=== PATIENT | female | born 1990 | race African-American/Black ===

== ENCOUNTER 2019-09-24 09:59 | Emergency (ER) | payer OTHER, SELFPAY ==
[2019-09-24 10:30] VITALS: BP 122/72; PULSE 80; RESP 16; TEMP 36.9; O2SAT 99
--- NOTE | 2019-09-24 11:06 | ED.DENTAL ---
HPI - Dental/Oral General Chief complaint: Dental/Oral Stated complaint: toothache Time Seen by Provider: 09/24/19 11:00 Source: patient and RN notes reviewed Mode of arrival: ambulatory Limitations: no limitations History of Present Illness HPI Narrative: Patient presents today complaining of right lower jaw swelling and tooth pain x2 days. Denies fever, shortness of breath or difficulty swallowing. She does not currently have a dentist and has not been able to find one that will take her insurance. Smokes 0.5 packs/day. Currently rates her pain 01/23 and has been taking ibuprofen without relief. Pain increases with opening and closing of her mouth. MD Complaint: tooth pain Related Data Home Medications Medication Instructions Recorded Confirmed fluoxetine mg 09/24/19 fluoxetine mg 09/24/19 hydroxyzine HCl 09/24/19 pravastatin 09/24/19 propranolol 09/24/19 trazodone 09/24/19 Allergies Allergy/AdvReac Type Severity Reaction Status Date / Time No Known Allergies Allergy Unverified 10/19/16 08:11 Review of Systems Review of Systems: Narrative: CONSTITUTIONAL: Denies body aches, fever, chills, or sweats. EYES: Denies visual changes, redness, or discharge. ENT: Denies rhinorrhea, congestion, sore throat, or otalgia.+ Tooth pain and right lower jaw swelling CARDIOVASCULAR: Denies chest pain, palpitations, or edema. RESPIRATORY: Denies cough or dyspnea. GASTROINTESTINAL: Denies abdominal pain, nausea, vomiting, or diarrhea. GENITOURINARY: Denies dysuria or hematuria. SKIN: Denies rash, itching, or wounds. MUSCULOSKELETAL: Denies back pain, joint pain, or myalgia. NEUROLOGIC: Denies headache, numbness, tingling, or weakness. PSYCH: Denies depression or anxiety. [facility] Past Medical History Medical History (Updated 09/24/19 @ 11:09 by Mariya Samano, NUTRITION AND DIETETICS INSTRUCTOR, ) Anxiety Comments At time of signature, I have reviewed and agree with nursing past medical, surgical, social and family history unless otherwise noted. Please see nursing chart for further information. There is no relevant family history pertinent to the presenting complaint Exam Narrative: Exam Narrative: GENERAL: Well-appearing, well-nourished, and in no acute distress. HEAD: Normocephalic, atraumatic. EYES: EOMI. No redness or drainage. Conjunctivae normal. ENT: Mucous membranes pink and moist. Throat normal. Uvula midline. + Swelling to the right lower jawline. Tenderness and fractured tooth #31 without obvious periapical abscess or gingival swelling. NECK: Normal AROM. Supple. No lymphadenopathy. CHEST: No respiratory distress. Clear to auscultation. HEART: Regular rate and rhythm. No murmur appreciated. Normal peripheral pulses. EXTREMITIES: Normal range of motion. No edema. SKIN: Warm, dry, no rash. Capillary refill normal. Normal skin turgor. NEURO: No focal deficits. Alert and oriented x3. Gait steady. PSYCH: Normal affect. No signs of depression or anxiety. Course Vital Signs Vital signs: Vital Signs Temperature 98.5 F 09/24/19 10:30 Pulse Rate 80 09/24/19 10:30 Respiratory Rate 16 09/24/19 10:30 Blood Pressure 122/72 09/24/19 10:30 Pulse Oximetry 99 09/24/19 10:30 Temperature 98.5 F 09/24/19 10:30 Pulse Rate 80 09/24/19 10:30 Respiratory Rate 16 09/24/19 10:30 Blood Pressure 122/72 09/24/19 10:30 Pulse Oximetry 99 09/24/19 10:30 Reviewed. Pt has been instructed to follow up with her PCP regarding her elevated blood pressure today. MDM - Dental/Oral Differential Diagnosis Differential diagnosis: Likely gingival abscess, dental caries, toothache, dental abscess and fracture of tooth Critical Care Time Critical Care Time Critical Care Time: No Discharge Plan Discharge Clinical Impression: Infected dental caries Patient Disposition: Home, Self-Care Condition: Stable Instructions: Dental Abscess (ED) Additional Instructions: Please take the amoxicillin and pred
== END 2019-09-24 11:13 | disposition home or self-care (01) ==
PROVIDERS: Emergency Provider Nurse Practitioner; PCP Family Medicine
DX: K02.9 Dental caries, unspecified (principal); F41.9 Anxiety disorder, unspecified; R03.0 Elevated blood-pressure reading, without diagnosis of hypertension
CPT/HCPCS: 99213; G0463

== ENCOUNTER 2019-11-06 20:16 | Emergency (ER) | payer OTHER, SELFPAY ==
[2019-11-06 20:21] VITALS: BP 153/84; PULSE 122; RESP 15; TEMP 36.1; O2SAT 100
[2019-11-06 20:55] LABS: Add Urine Microscopic? YES; Appearance Urine Cloudy (Clear); Bacteria Urine Trace /hpf; Bilirubin Urine Negative (Negative); Blood Urine 2+ (Negative); Color Urine Yellow (Yellow); Glucose Urine UA Negative (Negative); Ketones Urine Negative (Negative); Leukocyte Esterase Ur 3+ LEU/UL (Negative); Mucus Urine Rare /lpf; Nitrate Urine Negative (Negative); Protein Urine 2+ mg/dL (Negative); RBC Urine >75 /hpf (0-2); Specific Grav Ur 1.025 (1.001-1.035); Squamous Epithelial Cell Urine Many /hpf (Few); Urobilinogen Urine Negative mg/dL (<2.0); WBC Clumps Urine Present /HPF; WBC Urine >75 /hpf
[2019-11-06 21:12] VITALS: BP 135/96; PULSE 84; RESP 20; O2SAT 100
--- NOTE | 2019-11-06 21:20 | ED.GENADULT ---
HPI - General Adult General Chief complaint: Urogenital-Female Stated complaint: Blood in urine, back pain Time Seen by Provider: 11/06/19 20:30 History of Present Illness HPI narrative: Patient is a 29-year-old female who presents the ER with dysuria. Ongoing for 2 days. Also reports some lower right-sided back pain. No fevers or chills or sweats. Denies abdominal pain/nausea/vomiting. No vaginal discharge or vaginal bleeding. Related Data Home Medications Medication Instructions Recorded Confirmed fluoxetine [Prozac] 30 mg PO DAILY 09/24/19 Allergies Allergy/AdvReac Type Severity Reaction Status Date / Time No Known Allergies Allergy Unverified 11/06/19 20:32 Review of Systems Review of Systems: All systems reviewed & are unremarkable except as noted in HPI and below Constitutional: Constitutional: Denies chills, Denies fever(s) and Denies weakness Gastrointestinal: Gastrointestinal: Denies abdominal pain, Denies nausea and Denies vomiting Genitourinary: Genitourinary: Reports hematuria, Reports nocturia, Reports dysuria and Reports flank pain PMFSH Past Medical History Medical History (Updated 11/06/19 @ 21:39 by Osman Sanders MD) Anxiety Surgical History Surgical History (Updated 11/06/19 @ 21:36 by Osman Sanders MD) No pertinent past surgical history Social History Social History Gender identity (if verbalized by the patient): Female Exam Narrative: Exam Narrative: GENERAL: Well-appearing, well-nourished, and in no acute distress. HEAD: Normocephalic, atraumatic. ENT: Mucous membranes moist. CHEST: Clear to auscultation. No respiratory distress. HEART: Regular rate and rhythm. Normal peripheral pulses. ABDOMEN: Soft, nontender, nondistended, no CVA tenderness. EXTREMITIES: Normal range of motion. No edema. NEURO: Alert and oriented x3. Course Course Emergency Course: Informed of results. Discharge home. Vital Signs Vital signs: Vital Signs Temperature 97.0 F L 11/06/19 20:21 Pulse Rate 122 H 11/06/19 20:21 Respiratory Rate 15 11/06/19 20:21 Blood Pressure 153/84 H 11/06/19 20:21 Pulse Oximetry 100 11/06/19 20:21 Temperature 97.0 F L 06/23/20 20:21 Pulse Rate 84 11/06/19 21:12 Respiratory Rate 20 11/06/19 21:12 Blood Pressure 135/96 H 11/06/19 21:12 Pulse Oximetry 100 11/06/19 21:12 Medical Decision Making Vital Signs Vital Signs: Vital Signs Temperature 97.0 F L 11/06/19 20:21 Pulse Rate 122 H 11/06/19 20:21 Respiratory Rate 15 11/06/19 20:21 Blood Pressure 153/84 H 11/06/19 20:21 Pulse Oximetry 100 11/06/19 20:21 Temperature 97.0 F L 11/06/19 20:21 Pulse Rate 84 11/06/19 21:12 Respiratory Rate 20 11/06/19 21:12 Blood Pressure 135/96 H 11/06/19 21:12 Pulse Oximetry 100 11/06/19 21:12 Lab Data Labs: Lab Results 11/06/19 Range/Units 20:42 Urine Color Yellow (Yellow) Urine Appearance Cloudy H (Clear) Urine pH 6.0 (5.0-9.0) Ur Specific [place] 1.025 (1.001-1.035) Urine Protein 2+ H (Negative) mg/dL Urine Glucose (UA) Negative (Negative) mg/dL Urine Ketones Negative (Negative) mg/dL Ur Blood (Man) 2+ H (Negative) Urine Nitrate Negative (Negative) Urine Bilirubin Negative (Negative) Urine Urobilinogen Negative (<2.0) mg/dL Leukocyte Esterase Rfl 3+ H (Negative) APARNA/UL Urine RBC >75 H (0-2) /hpf Urine WBC >75 H /hpf Urine WBC Clumps Present H (None) /HPF Ur Squamous Epith Cells Many H (Few) /hpf Urine Bacteria Trace /hpf Urine Mucus Rare /lpf UCG Bedside Result Negative Reference Range: Negative Urine Characteristics Cloudy Discharge Plan Discharge Clinical Impression: UTI (urinary tract infection) Patient Disposition: Home, Self-Care Condition: Stable Instructions: Antibiotic Form, Urinary Tract Infection in Women (ED) Additional Instructions: Return the ER if
== END 2019-11-06 22:03 | disposition home or self-care (01) ==
PROVIDERS: Emergency Provider Emergency Medicine; PCP Family Medicine
DX: N39.0 Urinary tract infection, site not specified (principal); F41.9 Anxiety disorder, unspecified
CPT/HCPCS: 81001; 81025; 87077; 87086; 87088; 87186; 99283

== ENCOUNTER 2022-10-15 09:24 | Emergency (ER) | payer OTHER, SELFPAY ==
[2022-10-15 09:26] VITALS: BP 136/81; PULSE 100; RESP 20; TEMP 36.2; O2SAT 100
--- NOTE | 2022-10-15 09:53 | ED.GENADULT ---
HPI - General Adult General Chief complaint: Dental/Oral Stated complaint: dental Time Seen by Provider: 10/15/22 09:28 History of Present Illness HPI narrative: Pako Jeffery is a 32 y/o female who presents with reports of having hx of dental infection to her left upper teeth but presents today with complaints of new infection to her right upper teeth. She does have a dentist that she sees but reports it takes a long time to get in to see them. Reports pain to her right upper teeth started about 3 days ago. No fever/chills No difficulty swallowing / shortness of breath Related Data Home Medications Medication Instructions Recorded Confirmed fluoxetine 20 mg capsule (Prozac) 30 mg PO DAILY 09/24/19 Allergies Allergy/AdvReac Type Severity Reaction Status Date / Time No Known Allergies Allergy Unverified 11/06/19 20:32 Review of Systems Review of Systems: CONSTITUTIONAL: Denies fever, chills, or sweats. EYES: Denies visual changes, redness, or discharge. ENT: Denies rhinorrhea, congestion, sore throat, right upper dental pain CARDIOVASCULAR: Denies chest pain, palpitations, or edema. RESPIRATORY: Denies cough or dyspnea. GASTROINTESTINAL: Denies abdominal pain, nausea, vomiting, or diarrhea. GENITOURINARY: Denies dysuria or hematuria. SKIN: Denies rash or itching. MUSCULOSKELETAL: Denies back pain, joint pain, or myalgia. NEUROLOGIC: Denies headache, numbness, dizziness, or weakness. PSYCHIATRIC: Denies anxiety or depression. PMFSH Past Medical History Medical History Anxiety Surgical History Surgical History No pertinent past surgical history Social History Social History Gender identity (if verbalized by the patient): Female Exam Narrative: GENERAL: Well-appearing, well-nourished, and in no acute distress. HEAD: Normocephalic, atraumatic. EYES: PERRLA and EOMI. ENT: Nares clear, no rhinorrhea or epistaxis. Mucous membranes moist. Oropharynx without tonsillar hypertrophy exudate or other lesions. Missing teeth to the right upper, dental decay noted to the right upper teeth- slight facial swelling adjacent to the area of pain. No palpable fluctuance to drain noted on gums NECK: Supple. No adenopathy or masses. No carotid bruits or JVD CHEST: Clear to auscultation. No respiratory distress. No wheezes rales or rhonchi HEART: Regular rate and rhythm. No murmur heard. Normal peripheral pulses. ABDOMEN: Soft, nontender, nondistended, normal active bowel sounds. EXTREMITIES: Normal range of motion. No edema. SKIN: Warm, dry, no rash. NEURO: No focal deficits. Alert and oriented x3. PSYCH: Normal mood and affect. Course Vital Signs Vital signs: Vital Signs Temperature 36.2 C L 10/15/22 09:26 Pulse Rate 100 10/15/22 09:26 Respiratory Rate 20 10/15/22 09:26 Blood Pressure 136/81 10/15/22 09:26 Pulse Oximetry 100 10/15/22 09:26 Oxygen Delivery Room Air 10/15/22 09:26 Temperature 36.2 C L 10/15/22 09:26 Pulse Rate 100 10/15/22 09:26 Respiratory Rate 20 10/15/22 09:26 Blood Pressure 136/81 10/15/22 09:26 Pulse Oximetry 100 10/15/22 09:26 Oxygen Delivery Room Air 10/15/22 09:26 Vitals reviewed by me. Medical Decision Making MDM Narrative Medical decision making narrative: On exam pt is noted to have right upper tooth decay, no fluctuance area on palpation of gums to drain. Airway patent slight adjacent facial swelling noted to right cheek area No lymphadenopathy appreciated on exam Denies fever/chills lung sounds clear Tolerating PO Concern for : dental infection/ tooth decay/ Plan: treat with oral antibiotics/ pain control Follow up with dentist in 1 week Return to the ED for any worsening symptoms or concerns. Differential Diagnosis Differential Diagnosis: dent
[2022-10-15] MEDS: HYDROcodone/acetaminophen (*CRX) 5-325 MG TABLET 1 TAB PO (09:57)
[2022-10-15] MEDS: LIDOCAINE HCL 2% VISC SOLN 15 ML UDC PO (09:57)
[2022-10-15] MEDS: PENICILLIN V POTASSIUM 250 MG TABLET 500 MG PO (09:58)
[2022-10-15 10:21] VITALS: BP 127/82; PULSE 82; RESP 16; TEMP 37; O2SAT 98
== END 2022-10-15 10:23 | disposition home or self-care (01) ==
PROVIDERS: Emergency Provider Nurse Practitioner Family; PCP Family Medicine
DX: K02.9 Dental caries, unspecified (principal); F41.9 Anxiety disorder, unspecified
CPT/HCPCS: 99283; A9270

== ENCOUNTER 2023-02-24 08:56 | Emergency (ER) | payer OTHER, SELFPAY ==
[2023-02-24 08:59] VITALS: BP 144/87; PULSE 84; RESP 18; TEMP 36.4; O2SAT 100
--- NOTE | 2023-02-24 09:20 | ED.GENADULT ---
[facility] - General Adult General Chief complaint: Dental/Oral Stated complaint: TOOTHACHE Time Seen by Provider: 02/24/23 09:02 Source: patient Mode of arrival: ambulatory Limitations: no limitations History of Present Illness HPI narrative: This is a 32-year-old female who presents to the ED with chief complaint of dental pain intermittent for the last several weeks but worse in the last couple of days. Reports that the pain is in the right upper mouth. She reports having problems with this tooth in the past and feels that there might be an infection. Reports temporary relief with antibiotics during her last visit. States she has not been able to get into a dentist yet but knows she needs to. Denies fevers, chills, nausea, vomiting. Denies voice change, trismus, drooling. Related Data Home Medications Medication Instructions Recorded Confirmed fluoxetine 20 mg capsule (Prozac) 30 mg PO DAILY 09/24/19 Allergies Allergy/AdvReac Type Severity Reaction Status Date / Time No Known Allergies Allergy Verified 02/24/23 09:02 Review of Systems Review of Systems: All systems as dictated in [facility] Past Medical History Medical History Anxiety Surgical History Surgical History No pertinent past surgical history Social History Social History Gender identity (if verbalized by the patient): Female Exam Narrative: GENERAL: Well-appearing, well-nourished, and in no acute distress. HEAD: Normocephalic, atraumatic. EYES: PERRLA and EOMI. ENT: Poor dentition throughout. Gingival swelling above the right upper premolar/canine. Dental caries noted. Tenderness to the right maxillary area. No discrete or identifiable abscess. Nares clear, no rhinorrhea or epistaxis. Mucous membranes moist. Oropharynx without tonsillar hypertrophy exudate or other lesions. Floor the mouth is intact. No trismus or drooling. NECK: Supple. No adenopathy or masses. CHEST: No respiratory distress. Clear to auscultation. No wheezes rales or rhonchi HEART: Regular rate and rhythm. No murmur heard. Normal peripheral pulses. ABDOMEN: Soft, nontender, nondistended, normal active bowel sounds. MSK: Normal range of motion. No edema. SKIN: Warm, dry, no rash. NEURO: Alert and oriented x3. No focal deficits. PSYCH: Normal mood and affect. Course Vital Signs Vital signs: Vital Signs Temperature 97.6 F 02/24/23 08:59 Pulse Rate 84 02/24/23 08:59 Respiratory Rate 18 02/24/23 08:59 Blood Pressure 144/87 H 02/24/23 08:59 Pulse Oximetry 100 02/24/23 08:59 Oxygen Delivery Room Air 02/24/23 08:59 Temperature 97.6 F 02/24/23 08:59 Pulse Rate 84 02/24/23 08:59 Respiratory Rate 18 02/24/23 08:59 Blood Pressure 144/87 H 02/24/23 08:59 Pulse Oximetry 100 02/24/23 08:59 Oxygen Delivery Room Air 02/24/23 08:59 Medical Decision Making MDM Narrative Medical decision making narrative: This is a 32-year-old female who presents to the ED with chief complaint of dental pain on the right upper side. Reports she has had this problem in the past and improved with antibiotics. Vitals are normal. Exam shows gingival swelling and dental caries but no evidence of discrete or identifiable abscess. She will be given prescription for antibiotics. Dental referral given. Pt will be discharged in stable condition. Return precautions given and supportive measures discussed. Pt is understanding and agreeable with plan for discharge and follow-up with PCP/dentist. Vital Signs Vital Signs: Vital Signs Temperature 97.6 F 02/24/23 08:59 Pulse Rate 84 02/24/23 08:59 Respiratory Rate 18 02/24/23 08:59 Blood Pressure 144/87 H 02/24/23 08:59 Pulse Oximetry 100 02/24/23 08:59 Oxygen Delivery Room Air 02/24/23 08:59 Temperature 97.
== END 2023-02-24 09:48 | disposition home or self-care (01) ==
LOC: ANHED 09:37
PROVIDERS: Emergency Provider Physician Assistant; PCP Family Medicine
DX: K02.9 Dental caries, unspecified (principal); K05.10 Chronic gingivitis, plaque induced; F41.9 Anxiety disorder, unspecified
CPT/HCPCS: 99283